=== PATIENT | female | born 1950 | race Caucasian/White ===

== ENCOUNTER → 2020-09-24 | Outpatient (CLI) | payer MEDICARE, OTHER ==
--- NOTE | 2020-09-24 15:26 | RAD ---
US PELVIS W/TV History: Postmenopausal bleeding. Abnormal appearance of the cervix. Comparison: CT pelvis 06/01/2019 Technique: Sonographic examination of the pelvis was performed with transabdominal and transvaginal t echnique. Findings: Uterus- Size: 5.5 x 2.1 x 3.2 cm. Uterine parenchyma: Posterior uterine body 1.8 x 1.2 x 1.6 cm intramural-subserosal fibroid. Cervix: Hypoechoic mass in the cervix measures 1.2 x 0.9 x 1.0 cm without color Doppler flow. Endometrium- Endometrial Stripe: No abnormal fluid collections in the endometrial cavity, no obvious mass, and no abnormal blood flow within the endometrium by Doppler. Thickness: 2 mm. Adnexa- Right Ovary: Nonvisualized with transabdominal or transvaginal technique. Left Ovary: Nonvisualized with transabdominal or transvaginal technique. Mass: No abnormal adnexal masses. Fluid: No abnormal free fluid in the pelvis. Additional findings: None. Impression: 1. Nonvascular hypoechoic mildly heterogeneous mass confined to the cervix measuring 1.2 cm diameter . Malignancy is not excluded. Alternatively this may represent a nabothian cyst with hemorrhagic or p roteinaceous content. 2. Fibroid uterus. 3. Nonvisualization of the ovaries. No adnexal masses identified. Electronically signed by: Arik Rivera MD (09/24/2020 3:24 PM) [facility]
== END ==
LOC: US 09:54
PROVIDERS: ATTEND Family Medicine
DX: D25.9 Leiomyoma of uterus, unspecified (principal); N93.9 Abnormal uterine and vaginal bleeding, unspecified; N88.9 Noninflammatory disorder of cervix uteri, unspecified
CPT/HCPCS: 76830; 76856